=== PATIENT | male | born 1995 | race Caucasian/White ===

== ENCOUNTER 2017-04-20 14:31 | Emergency (ER) | payer OTHER ==
[~2017-04-20] VITALS: Ht 180.3 cm; Wt 91.0 kg
[2017-04-20 14:35] VITALS: Ht 180.3 cm; Wt 91.0 kg
[2017-04-20] MEDS ORDERED: IBUPROFEN 600 MG TAB PO ONE (16:30)
--- NOTE | 2017-04-20 16:51 | RADRPT ---
PROCEDURE: Thoracic spine radiograph CLINICAL INDICATION: Back pain. COMPARISON: None relevant listed. TECHNIQUE: AP and lateral views of the thoracic spine. FINDINGS: The patient is rotated. Slight dextroconvex curvature of the thoracic spine, which may be positional in nature. No fracture. Vertebral body height is preserved. Disc space height is preserved. No significant degenerative change. The visualized lungs are clear. No visualized soft tissue abnormality. IMPRESSION: Slight dextroconvex curvature of the thoracic spine which may be positional in nature. RPTAT: PP Physician Norman Date Time Electronically viewed and signed by Physician Norman on 04/20/2017 16:50 LG/
--- NOTE | 2017-04-20 16:54 | RADRPT ---
PROCEDURE: Lumbar spine radiograph CLINICAL INDICATION: Pain. COMPARISON: None relevant listed. TECHNIQUE: AP, cone down view, and lateral views. FINDINGS: Alignment is anatomic. The usual lumbar lordosis is preserved. There are 6 non-rib bearing lumbar vertebral bodies, transitional anatomy. No acute fracture. Vertebral body height is maintained. No suspicious bony lesion. Disc space height is preserved. No significant degenerative change. IMPRESSION: 1. Transitional anatomy, a congenital anomaly. 2. No acute fracture or subluxation. RPTAT: PP Physician Norman Date Time Electronically viewed and signed by Physician Norman on 04/20/2017 16:53 LG/
[2017-04-20] MEDS ORDERED: IBUP-1542 PO (17:11)
[2017-04-20 17:35] VITALS: BP 115/70; PULSE 65; RESP 18
--- NOTE | 2017-04-20 20:07 | ERD ---
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 Patient states that he backed up into a tree stump and began to feel pain that is sharp in quality. Pain is nonradiating. Pain is located in his mid to lower back. Patient denies any numbness or tingling of his lower extremities. He denies any urinary bowel incontinence. He denies any saddle like anesthesia. Patient denies any fevers or chills. ROS 12 point review of systems was done, all negative except per HPI. Medications Home Meds Active Scripts Ibuprofen* (Motrin*) 600 Mg Tab, 600 MG PO Q6, #30 TAB Prov:LATANYA ALVAREZ 04/20/17 Allergies Allergies: Coded Allergies: No Known Allergy (Unverified , 04/20/17) PMhx/Soc Medical and Surgical Hx: pt denies Medical Hx, pt denies Surgical Hx History of Surgery: No Anesthesia Reaction: No Hx Neurological Disorder: No Hx Respiratory Disorders: No Hx Cardiac Disorders: No Hx Psychiatric Problems: No Hx Miscellaneous Medical Probl: No Hx Alcohol Use: No Hx Substance Use: No Hx Tobacco Use: No Smoking Status: Never smoker Physical Exam Vitals Vital Signs Date Time Temp Pulse Resp B/P Pulse Ox O2 Delivery O2 Flow Rate FiO2 04/20/17 17:35 65 18 115/70 99 Room Air 04/20/17 14:35 98.4 96 18 118/72 97 Physical Exam GENERAL: The patient is well developed and appropriate for usual state of health , in no apparent distress. NECK: C-spine is soft and supple. There is no cervical lymphadenopathy. CHEST: Clear to auscultation bilaterally. There are no rales, wheezes or rhonchi. HEART: Regular rate and rhythm. No murmurs, clicks, rubs or gallops. ABDOMEN: Soft, nontender and nondistended. Good bowel sounds. No rebound or guarding. No gross peritonitis. No gross organomegaly or masses. No Braxton sign or McBurney point tenderness. No pulsatile abdominal mass. BACK: No midline or flank tenderness. Tender to palpation from L3-L5. Tense paraspinal muscles. Negative leg raise test. No step- offs. EXTREMITIES: Equal pulses bilaterally. There is no peripheral clubbing, cyanosis or edema. No focal swelling or erythema. Full range of motion. Grossly neurovascularly intact. NEURO: Alert and oriented. Cranial nerves II through XII are intact. Motor strength in all 4 extremities with 5/5 strength. Sensation grossly intact. Normal speech and gait. SKIN: There is no apparent rash or petechia. The skin is warm and dry. Results 24 hrs Current Medications Medications (Trade) Dose Ordered Sig/Padmini Route PRN Reason Start Time Stop Time Status Last Admin Dose Admin Ibuprofen (Motrin) 600 mg ONCE ONCE PO 04/20/17 16:30 04/20/17 16:31 DC 04/20/17 16:16 Procedures/MDM Differential Diagnosis includes but is not limited to back strain, vertebral fracture, epidural abscess, cauda equina, herniated disc, AAA rupture, kidney stones, UTI, pyelonephritis. This is a 22-year-old male presents to the ER with back pain after he hit his back with a tree stump. At this time there is no evidence of fracture dislocation. Patient is afebrile and well-appearing and he has full range of motion of bilateral extremities and is neurovascularly intact. He is stable for outpatient follow-up. He will be sent home with ibuprofen. He needs to follow-up with his primary care doctor within 1-2 days or return to ER sooner if symptoms worsen. My medical decision making was shared with the patient he understands and agrees with plan. Departure Diagnosis: Primary Impression: Back pain Condition: Stable Patient Instructions: Back Pain (Acute Or Chronic) Additional Instructions: Call your primary care doctor TOMORROW for an appointment during the next 1-2 days.See the doctor sooner or return here if your condition worsens before your appointment time. LATANYA ALVAREZ Apr 20, 2017 20:07
== END 2017-04-20 17:36 | disposition home or self-care (01) ==
LOC: FTE 14:31
DX: M54.5 Low back pain (principal)
CPT/HCPCS: 72072; 72100; Z7502; Z7610